=== PATIENT | male | born 1980 | race Caucasian/White ===

== ENCOUNTER 2016-09-06 15:15 | Emergency (ER) | payer OTHER ==
[2016-09-06] MEDS ORDERED: fentaNYL 100 MCG/2 ML INJ ONE (15:25)
[2016-09-06] MEDS ORDERED: ONDANSETRON 4 MG/2 ML VIAL ONE (15:28)
[2016-09-06] MEDS ORDERED: fentaNYL 100 MCG/2 ML INJ IVP ONE (15:32)
[2016-09-06] MEDS ORDERED: ONDANSETRON 4 MG/2 ML VIAL IVP ONE (15:32)
--- NOTE | 2016-09-06 15:37 | EDPHY ---
H & P Time Seen by Provider: 09/06/16 15:20 HPI/ROS: CHIEF COMPLAINT: "I dislocated my shoulder" HISTORY OF PRESENT ILLNESS: The patient is a 36-year-old male who presents emergency department after [place] right [place]. The patient is not exactly sure how it happened. He felt a pop in his right shoulder with significant pain. He states "I dislocated my shoulder." He denies direct shoulder contact trauma. Patient's pain is severe. It does not radiate. He has no numbness or tingling. The patient states he has dislocated his left shoulder numerous times. He has never had issues with his right shoulder. The patient denies striking his head. No loss consciousness. No neck or back pain. He has abrasion to his knees. REVIEW OF SYSTEMS: My complete review of systems is negative except as mentioned in the HPI. Smoking Status: Never smoked Physical Exam: Vitals noted GENERAL: Well-appearing, in no acute distress, alert. HEAD: No evidence of trauma. EYES: PERRLA, EOMI, normal to inspection. ENT: Airway intact, normal external examination. NECK: The trachea is midline. There is no crepitus. The C-spine is nontender. NEXUS criteria is negative (no midline tenderness, no distracting injury, no altered mental status, no recent alcohol use, no focal neurologic deficit). RESPIRATORY: Clear to auscultation bilaterally, no rales, rhonchi or wheezing. There is no crepitus or palpable rib fractures. CVS: Regular rate and rhythm, no rubs, murmurs, or gallops. ABDOMEN: Soft, no bruising or abrasions. Pelvis: Stable. No tenderness palpation. Hips full range of motion. BACK: Normal to inspection, no spinal tenderness, no spinal step off, no notable bruising or abrasions. SKIN: Normal color, warm, dry. No pallor or diaphoresis. EXTREMITIES: Right upper extremity: Patient has a step-off deformity is right shoulder. No bracing her bruising. Patient has notable muscle spasm of his pectoralis and biceps. Neurovascular intact distally. Left upper extremity: Atraumatic. No visible signs of trauma. No tenderness palpation. Neurovascular intact distally. Right lower extremity: Abrasions to his knee. No tenderness palpation. Neurovascular intact distally. Left lower extremity: Abrasion to his knee. No tenderness palpation. Neurovascular intact distally. Atraumatic, neurovascularly intact distally in all extremities, pelvis is stable , hips with full range of motion, moves all extremities freely. NEURO/PSYCH: Alert and oriented x 3, GCS 15, normal mood and affect, normal motor sensory exam. Constitutional: Initial Vital Signs Temperature (C) 36.6 C 09/06/16 15:58 Heart Rate 78 09/06/16 15:58 Respiratory Rate 18 09/06/16 15:58 Blood Pressure 116/68 09/06/16 15:58 O2 Sat (%) 97 09/06/16 15:58 O2 Delivery Mode Room Air Allergies/Adverse Reactions: No Known Allergies Allergy (Unverified 09/06/16 15:33) Home Medications: Medication Instructions Recorded Hydrocodone/APAP 5/325 [[place] 1 - 2 tab PO Q4 #13 tab 09/06/16 5/325 (RX)] Medical Decision Making - Diagnostics Imaging Results: Imaging Impressions Shoulder X-Ray 09/06/16 15:39 Impression: Currently normally located shoulder. Procedures: Procedure: Shoulder reduction Indication: Dislocated shoulder The patient consented to the procedure. I discussed the risks and benefits. Using deltoid massage and arm elevation with mild traction patient's shoulder was reduced. I palpated positive movement of the humeral head during the reduction. Patient was neurovascularly intact prior to procedure and post procedure. A post reduction x-ray was performed. ED Course/Re-evaluation: In the emergency department I discussed possible etiologies with the patient. Began to massage patient's right deltoid on arrival. IV was placed. He is given fentanyl 100 mcg IV and Zofran 4 mg IV. Please refer to the procedure note. The patient's shoulder was reduced without difficulty. X-ray was ordered. The of note, while IV was being placed I performed deltoid massage with mild traction. His shoulder reduced prior to obtaining previous duction images. Right shoulder x-ray: The patient has a Hill-Sachs deformity. Please refer the note by Dr. Robert. I discussed this with the patient. The patient was placed in a shoulder sling. On recheck the patient was neurovascularly intact distally. He will keep the sling in place until he follows up with Orthopedics. He is given follow-up with Dr. Saenz. Patient was given warnings prior to leaving. He will return with worsening symptoms. Differential Diagnosis: My differential includes but is not limited to fracture, dislocation, sprain, contusion, muscle tear, tendon tear, sprain, AC separation - Data Points Medications Given: Discontinued Medications Hydrocodone Bitart/Acetaminophen ([place] 5/325) 2 tab PO EDNOW ONE Stop: 09/06/16 15:50 Last Admin: 09/06/16 15:52 Dose: 2 tab Fentanyl (Sublimaze) 100 mcg IVP EDNOW ONE Stop: 09/06/16 15:33 Last Admin: 09/06/16 15:33 Dose: 100 mcg Ondansetron HCl (Zofran) 4 mg IVP EDNOW ONE Stop: 09/06/16 15:33 Last Admin: 09/06/16 15:33 Dose: 4 mg Departure - Departure Disposition: Home, Routine, Self-Care Clinical Impression: Dislocation of right shoulder joint Qualifiers: Encounter type: initial encounter Qualified Code(s): S43.004A - Unspecified dislocation of right shoulder joint, initial encounter Condition: Good Instructions: Shoulder Dislocation (ED) Additional Instructions: In the emergency department here shoulder was reduced. Keep your sling in place until you were evaluated by Orthopedic surgery. Return with worsening pain, numbness, tingling or any other concerns. Referrals: Roldan Saenz MD [Medical Doctor] - 5-7 days, call for appt. Prescriptions: Hydrocodone/APAP 5/325 [[place] 5/325 (RX)] 1 - 2 tab PO Q4 #13 tab
[2016-09-06] MEDS ORDERED: HYDROCODONE/APAP 5/325 TAB PO ONE (15:49)
[2016-09-06 15:59] VITALS: BP 116/68; PULSE 78; RESP 18; TEMP 97.9; O2SAT 97
== END 2016-09-06 16:40 | disposition home or self-care (01) ==
PROC: 0RSJXZZ Reposition Right Shoulder Joint, External Approach (ICD-10-PCS; principal; 2016-09-06)
DX: S43.004A Unspecified dislocation of right shoulder joint, initial encounter (principal); X58.XXXA Exposure to other specified factors, initial encounter; Y99.8 Other external cause status; Y93.16 Activity, rowing, canoeing, kayaking, rafting and tubing
CPT/HCPCS: 96374; A4565; J2405; J3010